=== PATIENT | male | born 1990 | race Caucasian/White ===

== ENCOUNTER → 2016-09-25 | Day surgery (SDC) | payer OTHER ==
[~2016-09-25] MED LIST: AMOXICILLIN PO; BACITRACIN15 GM TP; IBUPROFEN PO; NO MEDICATIONS; VICODIN 5/500 T1 TAB PO
--- NOTE | ~2016-09-25 | OR ---
Unit #: [id number] #: [id number] Patient: J CARLOS HUYNH [id number] [address] [address] [id number] O MR#: [id number] NAME: J CARLOS HUYNH ROOM: Date of Procedure: 09/25/2016 Admission Date: 09/25/2016 Surgeon: Timmy Mascorro M.D. : 1990 Attending Physician: Timmy Mascorro M.D. Primary Care Physician: Primary Care Physician No OPERATIVE REPORT PREOPERATIVE DIAGNOSIS Condyloma of the penis. POSTOPERATIVE DIAGNOSIS Condyloma of the penis. PROCEDURE PERFORMED CO2 laser ablation of penile condyloma. ANESTHESIA General. INDICATIONS FOR PROCEDURE Mr. Huynh is a pleasant 26-year-old male with penile condyloma. The risks, benefits, and alternatives including bleeding, infection, damage to adjacent structures, recurrence, unpleasing cosmetic result, cellulitis as well as the fact that this does not cure the viral disease of human papillomavirus nor does it eliminate the risk of transmission penile cancer and cervical cancer. Full informed consent was obtained. He wished to proceed. DESCRIPTION OF PROCEDURE The patient was taken to the operative suite and properly identified. After the application of satisfactory general anesthetic, the patient was placed in the supine position. His genitalia were prepped and draped in usual sterile fashion and toweled out with wet towels. Using the CO2 laser at a setting of 5 de león, we began treating the suprapubic condyloma. He had some larger ones that required going to 7 de león. He also had condyloma on the dorsal shaft in the left inguinal region and a few on the ventral shaft. He also had one in the right inguinal region. These were all treated, all visible condyloma treated. Bacitracin and sterile dressing were applied. The patient tolerated the procedure well without complications. He was transported stable and extubated to PACU. Dictated by... Timmy Mascorro M.D. FLORESITA/nate TD: 09/26/2016 02:32 Unit #: [id number] #: [id number] Patient: J CARLOS HUYNH JOB #: [id number] OPERATIVE REPORT Page 1 of 1 X Timmy Mascorro MD PROCEDURE OPERATIVE NOTE
== END | disposition home or self-care (01) ==
LOC: CSUR 05:49
DX: A63.0 Anogenital (venereal) warts (principal); Z98.890 Other specified postprocedural states
CPT/HCPCS: J0690; J2250; J2405; J3010

== ENCOUNTER 2016-10-06 19:17 | Emergency (ER) | payer OTHER ==
--- NOTE | ~2016-10-06 | CR181 ---
[facility]. [facility] A Service of [facility] & [facility] RADIOLOGY TEXT RESULTS PATIENT: J CARLOS HUYNH LOCATION: SED : [birth year] UNIT #: [id number] AGE: [address]: DAVIN MINER SEX: M ORDER DR: [id number] [place] [id number] E MR#: [id number] Acc #: [id number] NAME: J CARLOS HUYNH : 1990 SEX: M STUDY DATE/TIME: 10/06/2016 20:10 UNIT: SED ROOM: STUDY DESCRIPTION: CR Lumbar Spine 2 or 3 Views Attending Physician: Davin Miner Ordering Physician: Physician Non-Staff Primary Care Physician: Beatriz Austin M.D. MEDICAL IMAGING REPORT This report is preliminary unless electronic signature is present. EXAM Lumbar spine series, 10/06/2016 HISTORY 26-year-old male in the ED complaining of low back pain after injury. Fell while jogging about 1 hour prior to arrival. Low back pain. TECHNIQUE Three-view lumbar spine series. FINDINGS The examination is negative. No acute or chronic fracture deformity. Lumbar disc spaces and lumbar vertebral alignment are within normal limits. IMPRESSION Negative lumbar spine series. Dictated by... Christopher Jiménez M.D. THIS IS AN ELECTRONICALLY VERIFIED REPORT Christopher Jiménez M.D. at 10/07/2016 10:15 AM PARVEEN/rolando TD: 10/07/2016 01:35 JOB #: [id number] MEDICAL IMAGING REPORT Page 1 of 1
== END 2016-10-06 21:13 | disposition home or self-care (01) ==
LOC: SED 19:17
DX: S61.011A Laceration without foreign body of right thumb without damage to nail, initial encounter (principal); S39.012A Strain of muscle, fascia and tendon of lower back, initial encounter; W01.0XXA Fall on same level from slipping, tripping and stumbling without subsequent striking against object, initial encounter; Y92.410 Unspecified street and highway as the place of occurrence of the external cause
CPT/HCPCS: 72100; 90471; 90715; 99283